=== PATIENT | male | born 1950 | race Caucasian/White ===

== ENCOUNTER 2022-02-10 11:44 | Outpatient (CLI) | payer MEDICARE, SELFPAY ==
[2022-02-10 22:03] LABS: Albumin* 4.6 g/dL (3.3-5.0); Chloride* 104 mmol/L (96-114)
[2022-02-10 22:04] LABS: Potassium* 4.3 mmol/L (3.6-5.1); Sodium* 142 mmol/L (135-149)
[2022-02-10 22:06] LABS: Alanine Aminotransferase* 19 U/L (4-50); Alkaline Phosphatase* 71 U/L (40-150); Aspartate Amino Transferase* 28 U/L (12-35); Bilirubin Total* 0.6 mg/dL (0.1-1.5); Blood Urea Nitrogen* 20 mg/dL (7-30); Carbon Dioxide* 30 mmol/L (20-32); Cholesterol* 137 mg/dL (90-199); Creatinine* 1.2 mg/dL (0.5-1.5); Estimated Glomerular Filt Rate 64 ml/min; Glucose* 116 mg/dL (60-115); Total Protein* 7.5 g/dL (6.0-8.3); Triglycerides* 73 mg/dL (40-149)
[2022-02-10 22:07] LABS: Calcium* 9.3 mg/dL (8.4-10.6); HDL Cholesterol* 46 mg/dL (>=40); LDL Cholesterol Calculated 76 mg/dL (<100)
[2022-02-10 22:36] LABS: PSA Screen* 1.11 ng/mL (0.10-4.00)
== END 2022-02-10 11:45 | disposition home or self-care (01) ==
PROVIDERS: PCP Physician Assistant Medical; Visit Provider Physician Assistant Medical
DX: E78.5 Hyperlipidemia, unspecified (principal); Z12.5 Encounter for screening for malignant neoplasm of prostate; Z79.01 Long term (current) use of anticoagulants
CPT/HCPCS: 80053; 80061; 84153

== ENCOUNTER 2023-01-15 09:00 | Outpatient (CLI) | payer MEDICARE, SELFPAY | END 2023-01-15 09:01 | disposition home or self-care (01) | LOC: NFLDREF 01-20 10:57 | PROVIDERS: PCP Physician Assistant Medical; Referring Provider Physician Assistant Medical; Visit Provider Physician Assistant Medical | DX: Z79.01 Long term (current) use of anticoagulants (principal) | CPT/HCPCS: 85610 ==

== ENCOUNTER 2023-06-01 09:04 | Outpatient (CLI) | payer MEDICARE, SELFPAY | END 2023-06-01 09:05 | disposition home or self-care (01) | LOC: NFLDREF 06-02 10:43 | PROVIDERS: PCP Physician Assistant Medical; Referring Provider Physician Assistant Medical; Visit Provider Physician Assistant Medical | DX: E78.2 Mixed hyperlipidemia (principal); I25.10 Atherosclerotic heart disease of native coronary artery without angina pectoris; Z79.01 Long term (current) use of anticoagulants; Z12.5 Encounter for screening for malignant neoplasm of prostate | CPT/HCPCS: 80053; 80061; G0103 ==

== ENCOUNTER 2023-10-07 13:44 | Outpatient (CLI) | payer MEDICARE, SELFPAY | END 2023-10-07 13:45 | disposition home or self-care (01) | PROVIDERS: PCP Physician Assistant Medical; Visit Provider Physician Assistant Medical | DX: I25.10 Atherosclerotic heart disease of native coronary artery without angina pectoris (principal); I51.7 Cardiomegaly; I35.1 Nonrheumatic aortic (valve) insufficiency; I71.20 Thoracic aortic aneurysm, without rupture, unspecified; Z79.01 Long term (current) use of anticoagulants | CPT/HCPCS: 93306 ==

== ENCOUNTER 2024-06-29 08:35 | Outpatient (CLI) | payer MEDICARE, SELFPAY | END 2024-06-29 08:36 | disposition home or self-care (01) | LOC: NFLDREF 07-03 03:44 | PROVIDERS: PCP Physician Assistant Medical; Referring Provider Physician Assistant Medical; Visit Provider Physician Assistant Medical | DX: E78.2 Mixed hyperlipidemia (principal); I25.10 Atherosclerotic heart disease of native coronary artery without angina pectoris; Z79.01 Long term (current) use of anticoagulants; F41.9 Anxiety disorder, unspecified | CPT/HCPCS: 80053; 80061; 84443 ==

== ENCOUNTER 2025-01-12 08:55 | Outpatient (CLI) | payer MEDICARE, SELFPAY | END 2025-01-12 08:56 | disposition home or self-care (01) | LOC: NFLDREF 01-16 17:54 | PROVIDERS: PCP Physician Assistant Medical; Referring Provider Physician Assistant Medical; Visit Provider Physician Assistant Medical | DX: Z79.01 Long term (current) use of anticoagulants (principal); Z95.2 Presence of prosthetic heart valve | CPT/HCPCS: 85610 ==